=== PATIENT | female | born 1975 | race Caucasian/White ===

== ENCOUNTER 2018-11-05 09:35 | Emergency (ER) | payer BC ==
--- OUTSIDE RECORDS SUMMARY | 2018-11-05 10:00 | XMS REPORT | Continuity of Care Document ---
:1975 External Reference #:[id number] Author Name Luisito Anderson MD (transmitted by agent of provider Nelda Barroso) Address [address] [place] [id number] Care Team Providers Name Role Phone [place] Morales M.D. - Internal Medicine Care Team Information [employer] Problems Active Problems Provider Date Puncture wound of foot Luisito Anderson MD Onset: 10/15/2018 Social History Type Date Description Comments Sex Unknown Tobacco Use Start: Unknown Heavy tobacco smoker (more than 10 cigarettes/day) Smoking Status Reviewed: 10/25/18 Heavy tobacco smoker (more than 10 cigarettes/day) Allergies, Adverse Reactions, Alerts Active Allergies Reaction Severity Comments Date Latex 10/15/2018 Medications Description No Active Medications Immunizations Description No Information Available Vital Signs Date Vital Result Comment 10/25/2018 8:46am Height 65 inches 5'5" Weight 206.00 lb Heart Rate 100 /min BP Systolic 136 mmHg BP Diastolic 80 mmHg BMI (Body Mass Index) 34.3 kg/m2 10/15/2018 8:28am Height 65 inches 5'5" Weight 206.00 lb Heart Rate 90 /min BP Systolic 110 mmHg BP Diastolic 70 mmHg Body Temperature 98.0 F Pain Level 7 BMI (Body Mass Index) 34.3 kg/m2 Results Description No Information Available Procedures Description No Information Available Medical Devices Description No Information Available Encounters Type Date Location Provider Dx Diagnosis Office Visit 10/15/2018 Orthopedic Luisito Anderson S91.332A Puncture wound 8:[facility]a [facility] without foreign body, left foot, init encntr W45.0xxA Nail entering through skin, initial encounter Assessments Date Code Description Provider 10/25/2018 S91.332A Puncture wound without foreign body, left foot, Luisito Anderson MD initial encounter 10/15/2018 S91.332A Puncture wound without foreign body, left foot, Luisito Anderson MD initial encounter 10/15/2018 W45.0xxA Nail entering through skin, initial encounter Luisito Anderson MD Plan of Treatment 10/25/2018 - Luisito Anderson, [id number] Puncture wound without foreign body, left foot, initial encounterFollow up:Follow Up: As needed Functional Status Description No Information Available Mental Status Description No Information Available Referrals Description No Information Available
[2018-11-05 10:08] VITALS: BP 104/78
--- NOTE | 2018-11-05 10:38 | UC ---
Throat Pain/Nasal Gigi HPI - HPI Summary HPI Summary: nasal congestion x 2 days PND , cough , sinus pressure no fever, no chills denies any sob / wheezing - History of Current Complaint Chief Complaint: UCRespiratory Stated Complaint: CONGESTION Time Seen by Provider: 11/05/18 10:06 Hx Obtained From: Patient Hx Last Menstrual Period: FEBRUARY 2018, Onset/Duration: Gradual Onset, Lasting Days - 2, Still Present Severity: Moderate Pain Intensity: 8 Cough: Nonproductive Associated Signs & Symptoms: Positive: Sinus Discomfort, Nasal Discharge. Negative: Dysphagia, FB Sensation, Drooling, Wheezing, Hoarseness, Fever, Vomiting, Rash - Allergies/Home Medications Allergies/Adverse Reactions: Allergies Allergy/AdvReac Type Severity Reaction Status Date / Time seasonal Allergy Unknown Unknown Uncoded 11/05/18 10:01 Reaction Details Home Medications: Home Medications Acetaminophen [Mapap] 1,000 mg PO PRN 11/05/18 [History] PMH/Surg Hx/FS Hx/Imm Hx Respiratory History: Asthma - Surgical History Surgical History: Yes Surgery Procedure, Year, and Place: x2 - Family History Known Family History: Positive: None, Non-Contributory - Social History Alcohol Use: Rare Substance Use Type: None Smoking Status (MU): Heavy Every Day Tobacco Smoker Type: Cigarettes Amount Used/How Often: 1/2 ppd Household Exposure Type: Cigarettes Review of Systems All Other Systems Reviewed And Are Negative: Yes Constitutional: Positive: Negative Skin: Positive: Negative Eyes: Positive: Negative ENT: Positive: Negative Respiratory: Positive: Cough Is Patient Immunocompromised?: No Physical Exam Triage Information Reviewed: Yes Appearance: Well-Appearing, No Pain Distress, Well-Nourished Vital Signs: Initial Vital Signs Temp 98.1 F 11/05/18 10:02 Pulse 93 11/05/18 10:02 Resp 17 11/05/18 10:02 BP 104/78 11/05/18 10:02 Pulse Ox 98 11/05/18 10:02 Vital Signs Reviewed: Yes Eye Exam: Normal Eyes: Positive: Conjunctiva Clear ENT: Positive: Normal ENT inspection, Hearing grossly normal, Pharynx normal, Nasal drainage, TMs normal Neck: Positive: Supple, Nontender, No Lymphadenopathy Respiratory: Positive: Chest non-tender, Lungs clear, Normal breath sounds Cardiovascular: Positive: RRR, No Murmur, Pulses Normal Skin Exam: Normal Throat Pain/Nasal Course/Dx - Differential Dx/Diagnosis Provider Diagnosis: URI (upper respiratory infection) Discharge ED - Sign-Out/Discharge Documenting (check all that apply): Patient Departure All imaging exams completed and their final reports reviewed: No Studies - Discharge Plan Condition: Stable Disposition: HOME Patient Education Materials: Upper Respiratory Infection (DC) Referrals: Basilia Sosa PA [Primary Care Provider] - If Needed - Billing Disposition and Condition Condition: STABLE Disposition: Home
== END 2018-11-05 10:35 | disposition home or self-care (01) ==
LOC: UCCORT 09:35
DX: J06.9 Acute upper respiratory infection, unspecified (principal); F17.210 Nicotine dependence, cigarettes, uncomplicated
CPT/HCPCS: 99211; G0463